=== PATIENT | female | born 1950 | race Caucasian/White ===

== ENCOUNTER 2020-06-23 10:54 | Inpatient (IN) ==
[2020-06-23 11:17] LABS: Basophils % 0.1 % (0.0-0.8); Hematocrit 35.7 VOL% (35.7-47.0); Hemoglobin 12.5 GM/DL (12.0-16.0); Immature Granulocytes % 1.2 %; Immature Granulocytes Absolute 0.18 #; Lymphocytes # 1.5 10*3/uL (1.4-4.0); Lymphocytes % 10.4 % (21.3-54.2); Mean Corpuscular Volume 91.1 FL (87-102); Monocytes % 7.7 % (1.7-12.7); Neutrophils % 80.6 % (38.7-73.9); Platelet Count 674 T/CUMM (130-400); Red Blood Count 3.92 MC/CUMM (3.8-5.5); White Blood Count 14.5 T/CUMM (4-12)
[2020-06-23] MEDS ORDERED: ALBUTEROL/IPRATROPIUM 3 ML NEB RESP TX STA (11:17)
[2020-06-23 11:30] LABS: INR 1.1; PT Patient Result 11.7 SECS (9.8-11.9); Partial Thromboplastin Time 25.7 SECS (23.9-33.8)
[2020-06-23 11:39] LABS: Bilirubin,Total 0.6 MG/DL (0.2-1.0); Calcium 9.4 MG/DL (8.5-10.1); Osmolality,Calculated 286.7 MOS/KG (273-304); Total Protein 7.6 G/DL (6.4-8.3)
[2020-06-23 11:45] LABS: Band Neutrophils 1 % (0-10); Lymphocytes 7 % (20-55); Macrocytosis Slight; Platelet Estimate Increased; Segmented Neutrophils 78 % (50-85); Total Cells Counted 100
[2020-06-23 11:46] LABS: Anisocytosis Slight
[2020-06-23 12:04] LABS: Ferritin 340.7 ng/ml (8-252)
[2020-06-23] MEDS ORDERED: SODIUM CHLORIDE 0.9% 1,850 ML IV ONE (12:14)
[2020-06-23] MEDS ORDERED: SODIUM CHLORIDE 0.9% 100 ML IV ONE (12:47)
[2020-06-23] MEDS ORDERED: DEXTROSE 50% 25 GM/50 ML VIAL IV PRN (13:04)
[2020-06-23] MEDS ORDERED: GLUCAGON 1 MG VIAL IM PRN (13:04)
[2020-06-23] MEDS ORDERED: hydrALAZINE 20 MG/1 ML VIAL IV PRN (13:04)
[2020-06-23] MEDS ORDERED: ONDANSETRON 4 MG/2 ML VIAL IV PRN (13:04)
[2020-06-23] MEDS: cefTRIAXone 1,000 MG in SYRINGE 1 EACH IV SCH (13:25)
[2020-06-23] MEDS: AZITHROMYCIN INJ 500 MG in SODIUM CHLORIDE 0.9% 250 ML IV SCH (13:26)
[2020-06-23] MEDS ORDERED: AZITHROMYCIN INJ 500 MG in SODIUM CHLORIDE 0.9% 250 ML IV SCH (13:30)
[2020-06-23] MEDS ORDERED: cefTRIAXone 1,000 MG in SODIUM CHLORIDE 0.9% 100 ML IV SCH (13:30)
[2020-06-23 13:37] LABS: Risk Ratio 11.46; Thyroid Stimulating Hormone 0.364 uIU/ml (0.358-3.74)
[2020-06-23 13:53] LABS: Bilirubin,Urine Negative (Negative); Blood, Urine Negative (Negative); Glucose,Urine (UA) Negative (Negative); Hyaline Casts,Urine 26 /LPF (0-3); Ketones,Urine Negative (Negative); Mucus,Urine Occasional /LPF (Occasional); Nitrite,Urine Negative (Negative); Protein,Urine Negative; Squamous Epithelial Cell,Urine Occasional /HPF (0-10); Urine Appearance Slightly Hazy (Clear); Urine Color Yellow (Yellow); Urine Specific Gravity 1.015 (1.001-1.035); Urine Urobilinogen < 2.0 EU/DL (0.2-1.0); WBC,Urine 1 /HPF (0-6)
[2020-06-23] MEDS: ENOXAPARIN 30 MG/0.3 ML SYRINGE SUBCUT SCH (16:08)
[2020-06-23 16:13] LABS: ABG Base Excess -5.6 MMOL/L (-2.5-2.5); ABG HCO3 19.8 MMOL/L (20-26); ABG Oxygen Saturation 98.2 % (95-100); ABG PCO2 26.4 MM HG (35-48); ABG PH 7.428 (7.35-7.45); ABG TCO2 15.6 MMOL/L (23-27)
[2020-06-23] MEDS: SODIUM CHLORIDE 0.9% 1,000 ML IV SCH (16:32)
[2020-06-23] MEDS: DEXAMETHASONE 4 MG/1 ML VIAL IV SCH (16:35)
[2020-06-23] MEDS: CLORAZEPATE 3.75 MG TABLET PO PRN (20:49)
[2020-06-23] MEDS: ASCORBIC ACID 500 MG TABLET PO SCH (20:49)
[2020-06-23] MEDS: ACETAMINOPHEN 325 MG TABLET PO PRN (20:49)
[2020-06-23] MEDS: ALBUTEROL INHALER 18 GM INH SCH (22:30)
[2020-06-24] MEDS: DEXAMETHASONE 4 MG/1 ML VIAL IV SCH ×2 (01:59→14:25)
[2020-06-24 03:34] LABS: Basophils % 0.1 % (0.0-0.8); Hematocrit 29.6 VOL% (35.7-47.0); Hemoglobin 10.1 GM/DL (12.0-16.0); Immature Granulocytes % 1.8 %; Immature Granulocytes Absolute 0.15 #; Lymphocytes # 0.7 10*3/uL (1.4-4.0); Lymphocytes % 8.7 % (21.3-54.2); Mean Corpuscular HGB Conc 34.1 GM/DL (32-36); Mean Corpuscular Volume 93.1 FL (87-102); Mean Platelet Volume 9.9 FL (9.6-12.0); Monocytes % 7.2 % (1.7-12.7); Neutrophils % 82.2 % (38.7-73.9); Platelet Count 463 T/CUMM (130-400); Red Blood Count 3.18 MC/CUMM (3.8-5.5); Red Cell Distribution Width 13.3 % (9.3-17.3); White Blood Count 8.3 T/CUMM (4-12)
[2020-06-24 03:39] LABS: Calcium 8.1 MG/DL (8.5-10.1); Osmolality,Calculated 295.7 MOS/KG (273-304)
[2020-06-24 03:49] LABS: INR 1.1; PT Patient Result 11.6 SECS (9.8-11.9)
[2020-06-24 04:27] LABS: Ferritin 219.8 ng/ml (8-252)
[2020-06-24] MEDS: SODIUM CHLORIDE 0.9% 1,000 ML IV SCH ×2 (05:00→18:38)
[2020-06-24] MEDS: ALBUTEROL INHALER 18 GM INH SCH ×3 (08:20→19:36)
[2020-06-24] MEDS: ZINC SULFATE 220 MG CAPSULE PO SCH (09:07)
[2020-06-24] MEDS: ASCORBIC ACID 500 MG TABLET PO SCH ×2 (09:07→21:36)
[2020-06-24] MEDS: PANTOPRAZOLE 40 MG TABLET PO SCH (09:07)
[2020-06-24] MEDS: cefTRIAXone 1,000 MG in SYRINGE 1 EACH IV SCH (12:15)
[2020-06-24] MEDS: AZITHROMYCIN INJ 500 MG in SODIUM CHLORIDE 0.9% 250 ML IV SCH (12:16)
[2020-06-24] MEDS: ENOXAPARIN 30 MG/0.3 ML SYRINGE SUBCUT SCH (13:22)
[2020-06-24] MEDS: CLORAZEPATE 3.75 MG TABLET PO PRN (21:36)
[2020-06-24] MEDS: ACETAMINOPHEN 325 MG TABLET PO PRN (21:36)
[2020-06-25] MEDS: DEXAMETHASONE 4 MG/1 ML VIAL IV SCH (03:00)
[2020-06-25] MEDS: SODIUM CHLORIDE 0.9% 1,000 ML IV SCH ×2 (06:20→18:31)
[2020-06-25 06:40] LABS: PT Patient Result 10.9 SECS (9.8-11.9)
[2020-06-25 07:06] LABS: Ferritin 201.2 ng/ml (8-252)
[2020-06-25] MEDS: ASCORBIC ACID 500 MG TABLET PO SCH ×2 (08:06→20:25)
[2020-06-25] MEDS: ZINC SULFATE 220 MG CAPSULE PO SCH (08:06)
[2020-06-25] MEDS: PANTOPRAZOLE 40 MG TABLET PO SCH (08:06)
[2020-06-25] MEDS: AZITHROMYCIN 250 MG TABLET PO SCH (08:06)
[2020-06-25] MEDS: ALBUTEROL INHALER 18 GM INH SCH ×3 (08:17→18:31)
[2020-06-25] MEDS: cefTRIAXone 1,000 MG in SYRINGE 1 EACH IV SCH (12:32)
[2020-06-25] MEDS: ENOXAPARIN 30 MG/0.3 ML SYRINGE SUBCUT SCH (12:33)
[2020-06-25] MEDS: ACETAMINOPHEN 325 MG TABLET PO PRN (20:25)
[2020-06-25] MEDS: CLORAZEPATE 3.75 MG TABLET PO PRN (20:25)
[2020-06-26 06:04] LABS: Basophils % 0.2 % (0.0-0.8); Eosinophils # 0.1 10*3/uL (0.0-0.87); Eosinophils % 0.7 % (0.00-10.9); Hemoglobin 10.6 GM/DL (12.0-16.0); Immature Granulocytes % 2.2 %; Immature Granulocytes Absolute 0.24 #; Lymphocytes # 2.5 10*3/uL (1.4-4.0); Lymphocytes % 22.5 % (21.3-54.2); Mean Corpuscular HGB Conc 33.1 GM/DL (32-36); Mean Corpuscular Volume 93.3 FL (87-102); Mean Platelet Volume 10.2 FL (9.6-12.0); Monocytes % 8.9 % (1.7-12.7); Neutrophils % 65.5 % (38.7-73.9); Platelet Count 560 T/CUMM (130-400); Red Blood Count 3.43 MC/CUMM (3.8-5.5); Red Cell Distribution Width 13.1 % (9.3-17.3)
[2020-06-26 06:10] LABS: PT Patient Result 10.7 SECS (9.8-11.9)
[2020-06-26 06:36] LABS: Calcium 7.9 MG/DL (8.5-10.1); Osmolality,Calculated 279.3 MOS/KG (273-304)
[2020-06-26] MEDS: SODIUM CHLORIDE 0.9% 1,000 ML IV SCH ×2 (06:40→08:43)
[2020-06-26] MEDS: AZITHROMYCIN 250 MG TABLET PO SCH (08:36)
[2020-06-26] MEDS: ASCORBIC ACID 500 MG TABLET PO SCH (08:36)
[2020-06-26] MEDS: ZINC SULFATE 220 MG CAPSULE PO SCH (08:36)
[2020-06-26] MEDS: PANTOPRAZOLE 40 MG TABLET PO SCH (08:37)
[2020-06-26] MEDS: ALBUTEROL INHALER 18 GM INH SCH ×2 (08:37→12:16)
[2020-06-26] MEDS ORDERED: DEXAMETHASONE 4 MG TABLET PO SCH (09:00)
[2020-06-26] MEDS ORDERED: POTASSIUM CHLORIDE 20 MEQ TABLET PO ONE (10:42)
[2020-06-26 11:43] VITALS: BP 129/82
[2020-06-26] MEDS: cefTRIAXone 1,000 MG in SYRINGE 1 EACH IV SCH (12:11)
== END 2020-06-26 13:30 | disposition home or self-care (01) | DRG 871 ==
LOC: EDBD → EDUNIT# → N.ED 10:54 → N.EDINP 13:04 → SUATTDRO 13:04 → N.2E 15:47
PROVIDERS: ADMIT Family Medicine; ATTEND Internal Medicine